=== PATIENT | female | born 1990 | race Caucasian/White ===

== ENCOUNTER → 2021-09-26 | Outpatient (CLI) | payer OTHER ==
--- NOTE | 2021-09-27 07:11 | MR ---
EXAMINATION TYPE: MR knee RT wo con DATE OF EXAM: 09/26/2021 COMPARISON: None. HISTORY: Right knee pain, history of right knee surgery due to patella tendon being severed in half f rom snowboard accident TECHNIQUE: Multiplanar, multisequence imaging of the right knee is performed without IV contrast. FINDINGS: MEDIAL MENISCUS: Anterior and posterior horns are intact without tear. LATERAL MENISCUS: Anterior and posterior horns are intact without tear. CRUCIATE LIGAMENTS: The anterior and posterior cruciate ligaments are intact and unremarkable. COLLATERAL LIGAMENTS: The medial collateral ligament and lateral collateral ligament complex are inta ct and unremarkable. EXTENSOR MECHANISM: Susceptibility artifact along the distal quadriceps tendon from prior surgical re pair. No recurrent full-thickness tearing is seen. Patellar tendon is thickened with artifact. No rec urrent full-thickness tear. EFFUSION: No significant suprapatellar joint effusion. POPLITEAL CYST: No popliteal/islas cyst. TRICOMPARTMENT SPACES: Mild to moderate narrowing patellofemoral compartment. Mild patellofemoral jeanine nt spurring. CARTILAGE: Tricompartmental articular cartilage is preserved. BONE MARROW SIGNAL: Artifact extends through portions of the patella presumed from prior surgery. OTHER: Increased fluid signal throughout Hoffa's fat pad greatest superior aspect. IMPRESSION: 1. Evidence of prior patellar tendon and distal quadriceps tendon surgical repair without recurrent f ull-thickness tear. 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 No meniscal or ligamentous tear is seen.
== END | disposition home or self-care (01) ==
LOC: RADMRIMAIN 16:47
PROVIDERS: ATTEND Family Medicine
DX: M17.11 Unilateral primary osteoarthritis, right knee (principal)

== ENCOUNTER → 2022-12-09 | Outpatient (CLI) | payer OTHER ==
--- NOTE | 2022-12-10 10:15 | MR ---
EXAMINATION TYPE: MR brain wo/w con DATE OF EXAM: 12/09/2022 8:41 PM CLINICAL INDICATION:Female, 32 years old with history of R20.0 ANESTHESIA OF SKIN, H53.9 UNSPECIFIED VISUAL; PHH, Headaches, migraines COMPARISON: None TECHNIQUE: Multi planar, multi sequence imaging was performed through the brain including: T1, T2, In version recovery, susceptibility weighted imaging and gradient echo imaging and Diffusion weighted im aging. The patient was then given intravenous contrast and multi planar, T1 fat-saturation images wer e obtained. IV Contrast: 8 cc Gadavist FINDINGS: The hutton-white junctions, ventricular system, basal cisterns appear unremarkable. Diffusion-weighted imaging shows no evidence of restricted diffusion to suggest acute/subacute infarct. Intracranial art erial flow voids are maintained. Midline structures show no abnormality. The susceptibility weighted images do not reveal any evidence for micro-hemorrhage. After administration of gadolinium, no abnorm al enhancement is seen. The bone marrow signal is within normal limits. Paranasal sinuses and mastoid air cells: No significant paranasal sinus disease. Visualized orbits: Orbital contents are intact. IMPRESSION: No evidence of intracranial mass, acute/subacute infarct, or abnormal enhancement.
== END | disposition home or self-care (01) ==
LOC: RADMRIMAIN 10:43
PROVIDERS: ATTEND Family Medicine
DX: H53.9 Unspecified visual disturbance (principal); G43.909 Migraine, unspecified, not intractable, without status migrainosus; R20.0 Anesthesia of skin
CPT/HCPCS: 70553; A9585